=== PATIENT | female | born 1955 | race Caucasian/White ===

== ENCOUNTER 2024-01-28 11:13 | Day surgery (SDC) | payer OTHER ==
[~2024-01-28] VITALS: Ht 160 cm; Wt 75.1 kg
[~2024-01-28 11:13] MED LIST: EPINEPhrine HCl 1 MG / ML 30ML Vial ONE; Lactated Ringer's 1,000 ML IV ONE
[2024-01-28] MEDS ORDERED: EUTHYROX100 MC1 PO (12:01)
[2024-01-28] MEDS ORDERED: FUROSEMIDE20 MG PO (12:01)
[2024-01-28] MEDS ORDERED: B COMPLEX (12:02)
[2024-01-28] MEDS ORDERED: OMEGA 3 (12:02)
[2024-01-28] MEDS ORDERED: IRON VITAMIN C (12:02)
[2024-01-28] MEDS ORDERED: PROBIOTIC (12:03)
[2024-01-28] MEDS ORDERED: Lactated Ringer's 1,000 ML IV ONE ×2 (12:06→15:00)
[2024-01-28] MEDS ORDERED: Rocuronium Bromide 10 MG/ML 5ML Injection IV ONE (12:23)
[2024-01-28] MEDS ORDERED: propofoL 20 ML IV ONE ×2 (12:23→14:29)
[2024-01-28] MEDS ORDERED: Dexamethasone Sod Phos 10 MG/ML 1ML VIAL ONE (12:23)
[2024-01-28] MEDS ORDERED: Ondansetron HCl 2 MG / ML 2ML Vial ONE (12:23)
[2024-01-28] MEDS ORDERED: FentaNYL Citrate 50 MCG/ML 2 ML Injection ONE ×3 (12:24→16:14)
[2024-01-28] MEDS ORDERED: Lidocaine 1%-Epineph 1:200000 30 ML SDV INJ ONE (13:49)
--- NOTE | 2024-01-28 13:52 | NUR ---
01/28/24 1352 Katherine Porras 30ML OF EPI 1MG/ML USED TO SOAK PLEDGETTS ON THE FIELD.
[2024-01-28] MEDS ORDERED: Sugammadex Sodium 200 MG/2ML SDV (100 MG/ML) ONE (14:50)
[2024-01-28] MEDS ORDERED: Labetalol HCL 5 MG/ML 20MLVIAL ONE (15:52)
[2024-01-28] MEDS ORDERED: Labetalol HCL 5 MG/ML 4ML Injection (Single Dose) ONE (15:54)
== END 2024-01-28 16:31 | disposition home or self-care (01) ==
LOC: ORSCSDS 11:13
PROVIDERS: Otolaryngology
PROC: 099Q0ZZ Drainage of Right Maxillary Sinus, Open Approach (ICD-10-PCS; principal; 2024-01-28 12:30)
PROC: 09SL0ZZ Reposition Nasal Turbinate, Open Approach (ICD-10-PCS; principal; 2024-01-28 12:30)
PROC: 09BM0ZZ Excision of Nasal Septum, Open Approach (ICD-10-PCS; principal; 2024-01-28 12:30)
DX: J32.0 Chronic maxillary sinusitis (principal); J34.2 Deviated nasal septum; J34.3 Hypertrophy of nasal turbinates; E03.9 Hypothyroidism, unspecified; Z79.899 Other long term (current) drug therapy
CPT/HCPCS: 88305; 88311; J0171; J1100; J2405; J2704; J3010; J7120

== ENCOUNTER 2024-02-10 13:08 | Emergency (ER) | payer OTHER ==
[~2024-02-10] VITALS: Ht 160 cm; Wt 72.6 kg
[~2024-02-10 13:08] MED LIST changes: +B COMPLEX; -EPINEPhrine HCl 1 MG / ML 30ML Vial ONE; +EUTHYROX100 MC1 PO; +FUROSEMIDE20 MG PO; +IRON VITAMIN C; -Lactated Ringer's 1,000 ML IV ONE; +OMEGA 3; +PROBIOTIC
[2024-02-10 14:48] LABS: BASOPHILS ABSOLUTE AUTO 0.07 K/mm3 (0.00-0.23); BASOPHILS PERCENT AUTO 1 % (0-2); EOSINOPHILS ABSOLUTE AUTO 0.12 K/mm3 (0.00-0.68); EOSINOPHILS PERCENT AUTO 1 % (0-6); Hematocrit 36.7 % (33.0-51.0); Hemoglobin 12.5 g/dL (11.5-16.0); IMMATURE GRAN ABSOLUTE AUTO 0.03 K/mm3 (0.00-0.10); IMMATURE GRAN PERCENT AUTO 0 % (0-1); LYMPHOCYTES ABSOLUTE AUTO 1.94 K/mm3 (0.84-5.20); LYMPHOCYTES PERCENT AUTO 21 % (21-46); MONOCYTES ABSOLUTE AUTO 0.59 K/mm3 (0.16-1.47); MONOCYTES PERCENT AUTO 6 % (4-13); Mean Corpuscular HGB 31.6 pg (26.0-34.0); Mean Corpuscular HGB Conc 34.1 g/dL (31.5-36.5); Mean Corpuscular Volume 93 fL (80-100); Mean Platelet Volume 8.6 fL (9.1-12.4); NEUTROPHILS ABSOLUTE AUTO 6.64 K/mm3 (1.96-9.15); NEUTROPHILS PERCENT AUTO 71 % (41-73); Platelet Count 412 K/mm3 (150-400); RDW Standard Deviation 44.5 fL (35.1-46.3); Red Blood Cell Count 3.95 M/mm3 (3.80-5.20); White Blood Cell Count 9.39 K/mm3 (4.00-11.30)
[2024-02-10 14:59] LABS: Albumin, Blood 3.3 g/dL (3.4-5.0); Albumin/Globulin Ratio 0.8 (0.8-1.8); Bilirubin, Total 0.4 mg/dL (0.1-1.0); Bun/Creatinine Ratio 18.7 (12.0-20.0); Calcium, Blood 9.3 mg/dL (8.5-10.1); Creatinine, Blood 0.8 mg/dL (0.40-1.00); Potassium, Blood 3.3 mmol/L (3.5-5.5); Total Protein, Blood 7.3 g/dL (6.4-8.2)
[2024-02-10 17:28] LABS: Source, Urine Clean Catch
[2024-02-10 17:39] LABS: Appearance, Urine Cloudy (Clear); Bilirubin, Urine Neg (Neg); Blood, Urine Neg (Neg); Color, Urine Yellow (P-Yellow); Glucose Qualitative, Urine Neg (Neg); Ketones, Urine Neg (Neg); Leukocyte Esterase, Urine 1+ (Neg); Nitrite, Urine Neg (Neg); Protein, Urine Neg (Neg); Specific Gravity, Urine 1.015 (1.003-1.022); Urobilinogen, Urine NORM (Normal)
[2024-02-10] MEDS ORDERED: Ibuprofen 400 MG Tab PO ONE (18:00)
[2024-02-10] MEDS ORDERED: Acetaminophen 500 MG Tab PO ONE (18:05)
[2024-02-10 18:24] LABS: Amorphous Heavy (0-Heavy); Bacteria Many /hpf; Mucus Light (0-Heavy); Red Blood Cells, Urine 0-2 /hpf (0-2); Squamous Epithelial Cells Few /hpf (Few); Transitional Epithelial Cells Few /hpf (0-Rare)
[2024-02-10] MEDS ORDERED: Cefuroxime Axetil 250 MG Tab PO ONE (18:35)
[2024-02-10] MEDS ORDERED: CEFU500T30 PO (18:36)
== END 2024-02-10 17:59 | disposition home or self-care (01) ==
LOC: ER 13:08
PROVIDERS: Physician Assistant; Student in an Organized Health Care Education/Training Program
DX: R53.83 Other fatigue (principal); H92.02 Otalgia, left ear; Z88.0 Allergy status to penicillin; Z88.2 Allergy status to sulfonamides; Z88.1 Allergy status to other antibiotic agents; Z79.890 Hormone replacement therapy; Z79.899 Other long term (current) drug therapy
CPT/HCPCS: 71046; 80053; 81001; 83690; 84484; 85025; 87086; 93005; 93010; 99285-25; A9270

== ENCOUNTER → 2024-12-17 | Outpatient (CLI) | payer OTHER ==
[~2024-12-17] MED LIST changes: +CEFU500T30 PO
== END ==
LOC: LAB 14:47 → LAB SHORT 14:47
DX: R30.0 Dysuria (principal)
CPT/HCPCS: 87086